=== PATIENT | male | born 1990 | race Caucasian/White ===

== ENCOUNTER 2017-01-26 14:03 | Emergency (ER) | payer SELFPAY ==
[~2017-01-26] VITALS: Ht 177.8 cm; Wt 84.1 kg
[2017-01-26 14:03] VITALS: BP 143/71; PULSE 87; RESP 16; O2SAT 99
[2017-01-26 14:57] LABS: Mean Corpuscular Volume 84.3 fL (81-100)
--- NOTE | 2017-01-26 15:01 | ED.REPORT ---
HPI-General Illness Date of Service Jan 26, 2017 ED Provider: Paulie Roger DO The pt is a 26 year old male who presents to the ED via EMS due to sudden onset of right sided paresthesia this afternoon while driving. Associated symptoms include diaphoresis and mild shortness of breath. . The episode lasted about 30 seconds, he pulled over the car, and called EMS. Pt still feels a little "foggy" at the ED, but all other symptoms have resolved. He has never had anything like this happen before. Pt was drinking yesterday.He denies vomiting, nausea, diarrhea, LOC, and headache. No hx of seizure disorder. Nursing Notes Stated Complaint: DIZZY / DIAPHORESIS Chief Complaint: General Complaint Nursing Notes Reviewed: Yes Allergies: Coded Allergies: No Known Allergies (Unverified , 01/26/17) General Time Seen by MD: 15:00 Chief Complaint Other (right sided weakness) Hx Obtained From: Patient Arrived By: Walk-in Sudden in Onset?: Yes Onset Occurred: Just prior to arrival Symptom Duration: Since onset Recent Healthcare: No recent doctor visit, No recent hospitalization Similar Sx Previous: No Past Medical History Past Medical History denies Past Surgical History denies Social History Other Social History: Good social support, Local resident Ambulatory Status Independent Review of Systems right sided paresthesia Full Review of Systems Constitutional: Denies: Chills, Fatigue Eyes: Denies: Blurred left, Blurred right Ears / Nose / Throat: Denies: Ear drainage left Respiratory: Reports: Shortness of breath, Denies: Dyspnea on exertion, Hemoptysis, Pleuritic pain Cardiovascular: Denies: Chest pain GI: Denies: Abdominal pain, Diarrhea, Nausea, Vomiting Male: Denies Dysuria, Denies Flank pain, Denies Hematuria Musculoskeletal: Denies: Back pain, Extremity pain Hematologic: Denies Adenopathy Endocrine: Denies: Cold intolerance, Heat intolerance Skin: Reports Diaphoresis Neurologic: Denies: Change LOC, Headache Psychiatric: Reports: Confusion Complete sys rev & neg: except as marked. Physical Exam Vital Signs Vital Signs Date Time Temp Pulse Resp B/P Pulse Ox O2 Delivery O2 Flow Rate FiO2 01/26/17 14:03 36.9 87 16 143/71 99 Room Air Initial VS: Reviewed ENT: Mucous membranes moist Respiratory: Breath sounds normal, Clear to auscultation, No respiratory distress Cardiovascular: Regular rate & rhythm, Heart sounds normal Abdomen / GI: Soft, Non-tender, No guarding, No rebound, No distention Back: No CVA tenderness Extremities: Vascular intact, Neuro intact, No swelling, No tenderness Skin: Warm, Dry General/Constitutional: Awake, Alert, No acute distress, Cooperative, Not toxic appearing Head / Eyes: Atraumatic, Normocephalic, PERRL, EOMI Neurologic: Oriented X3, Speech NL, No motor deficits, No sensory deficits, Reflexes equal bilat, Cerebellar NL, Memory NL, Gait NL Interpretation & Diagnostics Lab Results Interpretation Result Diagram: 01/26/17 1414 01/26/17 1414 Test 01/26/17 14:14 01/26/17 15:24 01/26/17 17:55 White Blood Count 6.0th/mm3 (3.8-10.1) Red Blood Count 4.79mil/mm3 (4.40-5.80) Hemoglobin 13.9g/dL (13.8-17.2) Hematocrit 40.4% (41.0-50.0) Mean Corpuscular Volume 84.3fL (81-100) Mean Corpuscular Hemoglobin 29.0pg (27.0-35.0) Mean Corpuscular Hemoglobin Concent 34.4% (32.0-37.0) Red Cell Distribution Width 12.9% (12.3-15.4) Platelet Count 277bil/L (150-400) D-Dimer < 0.50mg/L FEU (<0.50) Sodium Level 136mEq/L (134-144) Potassium Level 3.9mEq/L (3.5-5.2) Chloride Level 99mEq/L (97-108) Carbon Dioxide Level 23mmol/L (18-29) Blood Urea Nitrogen 13mg/dL (6-20) Creatinine 0.85mg/dL (0.76-1.27) Estimat Glomerular Filtration Rate 115mL/min (>59) Glucose Level 161mg/dL (60-99) Calcium Level 9.7mg/dL (8.5-10.1) Total Bilirubin 0.3mg/dL (0.0-1.2) Aspartate Amino Transf (AST/SGOT) 23U/L (0-50) Alanine Aminotransferase (ALT/SGPT) 19U/L (0-44) Alkaline Phosphatase 81U/L (25-150) Total Protein 7.4g/dL (6.4-8.4) Albumin 4.9g/dL (3.4-5.0) Hold Urine Received (Received) Troponin T < 0.010ug/L (0.0-0.011) ECG Interpretation Time: 16:18 Interpreted by: ED physician Normal ECG Interpretation: Normal sinus rhythm (rate 79) CT Head Interpretation IMPRESSION: 1. No acute intracranial process. Dictated by: Ludmila Jennings M.D. on 01/26/2017 at 16:36 Approved by: Ludmila Jennings M.D. on 01/26/2017 at 16:37 Study: Head CT no contrast Interpretation / Wet Read by: Interpret - Radiologist Re-Eval/Medical Decision Med Decision/Clinical Course 26-year-old male had a near syncopal episode associated with diaphoresis and some paresthesias of his arms. Symptoms are resolved prior to presentation. He had a normal examination. His NIH stroke score was 0. His EKG was normal. Serial cardiac enzymes are negative. D-dimer is negative. CT scan brain was normal. He was observed for hours. No tachydysrhythmia. He felt fine and was not interested in staying in the hospital overnight. I am not exactly sure what happened. No signs acute stroke, dysrhythmia or myocardial infarction. PE seems very unlikely based on history and risk. As such we will discharge him home with close outpatient follow-up. Time of Eval: 18:48 Patient Status: Condition improved Re-Evaluation/Progress Note: Pt rechecked. He is asymptomatic and wants to go home. Plan for discharge. Counseled Regarding: Diagnosis, Lab results, Need for follow-up, When/why to return to ED Discharge & Departure Primary Impression: Near syncope Additional Impression: Paresthesia Disposition: Home Discharge Condition All VS Reviewed: Yes Condition: Stable Patient Instructions: Paresthesia (ED), Syncope (ED) Additional Instructions: The cause of your symptoms is uncertain. The CAT scan of your brain, blood clot blood test, serial heart enzymes and laboratory work were all reassuring. It is hard to say why you nearly blacked out. I think that close follow-up is essential. Drink plenty of liquids. Do not drive until you are feeling better. Call your doctor or the referral clinic on Friday for follow-up. Return if any problems or any new or worsening symptoms. If symptoms return you may need an EEG to evaluate for possible seizure. Discuss this with your primary care follow-up. Referrals: JANIE (PCP) [facility] Scribe Attestation Portion of this note were transcribed by Danielle Ramos. I, Dr. Roger, personally performed the history, physical exam, and medical decision-making: I reviewed and confirmed the accuracy for the information in the transcribed note. Signed by: remington Kline, 01/26/17 1700 copies to: JANIE; [facility] Risk Factors NIH Stroke Scale Level of Consciousness: Alert and responsive (0) Ask Month & Age: Both questions right (0) Open/Close Eyes/Hand Care Center Manager: Performs both tasks (0) Horizontal EO Movements: None (0) Visual Kennedy: No visual loss (0) Facial Palsy: Normal symmetry (0) Right Arm Motor Drift (10s): No drift 10 sec (0) Left Arm Motor Drift (10s): No drift 10 sec (0) Right Leg Motor Drift (5s): No drift 5 sec (0) Left Leg Motor Drift (5s): No drift 5 sec (0) Limb Ataxia FNF/Heel-Rodriguez: No ataxia (0) Sensation (Arms/Legs/Face): No sensory loss (0) Language Aphasia: No aphasia, normal (0) Dysarthria: No dysarthria, normal (0) Extinction/Inattention: No exctinct/inattent (0) NIHSS Score: 0 Time NIHSS Performed: 15:39 Date NIHSS Performed: Jan 26, 2017 Paulie Roger DO Jan 26, 2017 15:01 Danielle Ramos Jan 26, 2017 15:15
--- NOTE | 2017-01-26 16:38 | DRSVH ---
PROCEDURE: CT BRAIN WITHOUT CONTRAST ([id number]) INDICATIONS: right sided weakness TECHNIQUE: Noncontrast 4.5 mm thick angled axial sections acquired from the foramen magnum to the vertex, with c oronal reformats. COMPARISON: None. FINDINGS: Image quality: Excellent. CSF spaces: Basal cisterns are patent. No extra-axial fluid collections. Ventricles are normal in size and shape. Brain: No midline shift. No intracranial masses or hemorrhage. Arana-white matter interface is norm al. Skull and face: Calvarium and visualized facial bones are intact, without suspicious lesions. Sinuses: Visualized sinuses demonstrate minimal ethmoid sinus the coastal thickening. IMPRESSION: 1. No acute intracranial process. Dictated by: Ludmila Jennings M.D. on 01/26/2017 at 16:36 Approved by: Ludmila Jennings M.D. on 01/26/2017 at 16:37
== END 2017-01-26 18:56 | disposition home or self-care (01) ==
LOC: EDBD 14:03 → SED 14:03
DX: R55 Syncope and collapse (principal); R20.2 Paresthesia of skin